=== PATIENT | female | born 1945 | race African-American/Black ===

== ENCOUNTER 2017-01-28 09:31 | Outpatient (CLI) | payer OTHER | END 2017-01-28 18:05 | disposition home or self-care (01) | LOC: SMA 09:31 | PROVIDERS: ATTEND Family Medicine | DX: Z12.31 Encounter for screening mammogram for malignant neoplasm of breast (principal) | CPT/HCPCS: 77067; G0202 ==

== ENCOUNTER 2017-02-09 10:04 | Outpatient (CLI) | payer OTHER | END 2017-02-09 18:40 | disposition home or self-care (01) | LOC: SUS 10:04 | PROVIDERS: ATTEND Family Medicine | DX: N63 Unspecified lump in breast (principal) | CPT/HCPCS: 76642 ==

== ENCOUNTER 2019-03-14 10:53 | Outpatient (CLI) | payer OTHER | END 2019-03-14 21:03 | disposition home or self-care (01) | LOC: SMA 10:53 | PROVIDERS: ATTEND Family Medicine | DX: Z12.31 Encounter for screening mammogram for malignant neoplasm of breast (principal); N63.10 Unspecified lump in the right breast, unspecified quadrant; N63.20 Unspecified lump in the left breast, unspecified quadrant | CPT/HCPCS: 76641; 77067 ==

== ENCOUNTER 2021-04-21 10:22 | Outpatient (CLI) | payer OTHER | END 2021-04-21 20:56 | disposition home or self-care (01) | LOC: SMA 10:22 | PROVIDERS: ATTEND Family Medicine | DX: R91.8 Other nonspecific abnormal finding of lung field (principal); R06.02 Shortness of breath; I51.7 Cardiomegaly; N63.20 Unspecified lump in the left breast, unspecified quadrant; R92.2 Inconclusive mammogram; N64.89 Other specified disorders of breast | CPT/HCPCS: 71046-TC; 77066 ==

== ENCOUNTER 2022-07-28 14:28 | Outpatient (CLI) | payer OTHER | END 2022-07-28 19:44 | disposition home or self-care (01) | LOC: SMA 14:28 | PROVIDERS: ATTEND Family Medicine | DX: Z12.31 Encounter for screening mammogram for malignant neoplasm of breast (principal); N63.20 Unspecified lump in the left breast, unspecified quadrant; K57.30 Diverticulosis of large intestine without perforation or abscess without bleeding; R19.09 Other intra-abdominal and pelvic swelling, mass and lump | CPT/HCPCS: 76376; 77067 ==